=== PATIENT | male | born 1975 | race Caucasian/White ===

== ENCOUNTER 2016-11-10 12:27 | Day surgery (SDC) | payer OTHER ==
[~2016-11-10 12:27] MED LIST: Ketorolac 30 MG/ML SDV ONE; Lactated Ringers 1,000 ML IV SCH; Lidocaine 1%/Sod Bicarbonate in NS 8.4% 1 ML Syringe IV PRN; Sodium Chloride 0.9% 10 ML Syringe FLUSH PRN
[2016-11-10] MEDS ORDERED: Bupivacaine 0.25% 30 ML SDV ONE (12:32)
[2016-11-10] MEDS ORDERED: Lidocaine 1% 30 ML SDV ONE (12:35)
--- NOTE | 2016-11-10 13:05 | PCM.PREANE ---
Preanesthetic Assessment - Anesthesia/Transfusion/Family Hx Anesthesia History: Prior Anesthesia Without Reaction Type of Anesthesia Reaction: Other (see below) Family History of Anesthesia Reaction: No Transfusion History: No Prior Transfusion(s) - Review of Systems General: No Symptoms Pulmonary: No Symptoms Cardiovascular: No Symptoms Gastrointestinal: No symptoms, Other (occasional reflux) Neurological: No Symptoms Other: Reports: None - Physical Assessment NPO Status Date: 11/09/16 NPO Status Time: 21:00 ASA Class: 1 Mental Status: Alert & Oriented x3 Airway Class: Mallampati = 2 Dentition: Reports: Normal Dentition Thyro-Mental Finger Breadths: 3 Mouth Opening Finger Breadths: 3 ROM/Head Extension: Full Lungs: Clear to auscultation, Normal respiratory effort Cardiovascular: Regular Rate, Regular Rhythm - Lab Values: Laboratory Last Values WBC 9.95 K/mm3 (4.23-9.07) H 11/08/16 13:25 RBC 5.50 M/mm3 (4.63-6.08) 11/08/16 13:25 Hgb 16.8 gm/L (13.7-17.5) 11/08/16 13:25 Hct 48.1 % (40.1-51.0) 11/08/16 13:25 MCV 87.5 fl (79.0-92.2) 11/08/16 13:25 MCH 30.5 pg (25.7-32.2) 11/08/16 13:25 MCHC 34.9 g/dl (32.2-35.5) 11/08/16 13:25 RDW Std Deviation 41.3 fL (35.1-43.9) 11/08/16 13:25 Plt Count 330 K/mm3 (163-337) 11/08/16 13:25 MPV 8.7 fl (9.4-12.3) L 11/08/16 13:25 Neut % (Auto) 42.0 % (34.0-67.9) 11/08/16 13:25 Lymph % (Auto) 41.6 % (21.8-53.1) 11/08/16 13:25 Chase % (Auto) 8.6 % (5.3-12.2) 11/08/16 13:25 Eos % (Auto) 7.5 (0.8-7.0) H 11/08/16 13:25 Baso % (Auto) 0.3 % (0.1-1.2) 11/08/16 13:25 Neut # (Auto) 4.17 K/mm3 (1.78-5.38) 11/08/16 13:25 Lymph # (Auto) 4.14 K/mm3 (1.32-3.57) H 11/08/16 13:25 Chase # (Auto) 0.86 K/mm3 (0.30-0.82) H 11/08/16 13:25 Eos # (Auto) 0.75 K/mm3 (0.04-0.54) H 11/08/16 13:25 Baso # (Auto) 0.03 K/mm3 (0.01-0.08) 11/08/16 13:25 Sodium 139 mEq/L (136-145) 11/08/16 13:25 Potassium 4.1 mEq/L (3.5-5.1) 11/08/16 13:25 Chloride 103 mEq/L (98-107) 11/08/16 13:25 Carbon Dioxide 28 mEq/L (21-32) 11/08/16 13:25 Anion Gap 12.1 (5-15) 11/08/16 13:25 BUN 14 mg/dL (7-18) 11/08/16 13:25 Creatinine 1.0 mg/dL (0.7-1.3) 11/08/16 13:25 Est Cr Clr Drug Dosing TNP 11/08/16 13:25 Estimated GFR (MDRD) > 60 mL/min (>60) 11/08/16 13:25 BUN/Creatinine Ratio 14.0 (14-18) 11/08/16 13:25 Glucose 87 mg/dL (74-106) 11/08/16 13:25 Calcium 9.1 mg/dL (8.5-10.1) 11/08/16 13:25 MRSA (PCR) Negative 11/08/16 13:25 - Allergies Allergies/Adverse Reactions: Allergies Allergy/AdvReac Type Severity Reaction Status Date / Time No Known Allergies Allergy Verified 11/09/16 15:20 - Blood Blood Available: No Product(s) Available: None - Anesthesia Plan Pre-Op Medication Ordered: None - Acknowledgements Anesthesia Type Planned: MAC Pt an Appropriate Candidate for the Planned Anesthesia: Yes Alternatives and Risks of Anesthesia Discussed w Pt/Guardian: Yes Pt/Guardian Understands and Agrees with Anesthesia Plan: Yes PreAnesthesia Questionnaire Cardiovascular History: Reports: None Respiratory History: Reports: None Gastrointestinal History: Reports: None NEW [employer] MECH[employer]IC History: Reports: None Musculoskeletal History: Neurological History: Reports: None Psychiatric History: Reports: None Endocrine/Metabolic History: Reports: None Hematologic History: Reports: None Immunologic History: Reports: None Oncologic (Cancer) History: Reports: None Dermatologic History: Reports: None - Past Surgical History Head Surgeries/Procedures: Reports: None HEENT Surgical History: Reports: Oral surgery Male Surgical History: Reports: Vasectomy Musculoskeletal Surgical History: Reports: Other (see below) Other Musculoskeletal Surgeries/Procedures:: back pain - SUBSTANCE USE Smoking Status *Q: Never Smoker Recreational Drug Use History: No - HOME MEDS Home Medications: Home Meds Hydrocodone/Acetaminophen [[place] 5-325 Tablet] 1 - 2 each PO Q6H PRN #20 tablet 11/10/16 [Rx] - CURRENT (IN HOUSE) MEDS Current Meds: Current Medications Lactated Ringer's (Ringers, Lactated) 1,000 mls @ 125 mls/hr IV ASDIRECTED VIOLET Stop: 11/10/16 23:00 Lidocaine/Sodium Bicarbonate (Buffered Lidocaine 1% In Ns 8.4%) 0.25 ml IV ONETIME PRN PRN Reason: Prior to IV Start Stop: 11/10/16 18:00 Sodium Chloride (Saline Flush) 10 ml FLUSH ASDIRECTED PRN PRN Reason: Keep Vein Open Stop: 11/10/16 18:00 Discontinued Medications Bupivacaine HCl (Marcaine 0.25%) Confirm Administered Dose 30 ml .ROUTE .STK- MED ONE Stop: 11/10/16 12:33 Ketorolac Tromethamine (Toradol) Confirm Administered Dose 30 mg .ROUTE .STK- MED ONE Stop: 11/10/16 09:43 Lidocaine HCl (Xylocaine-Mpf 1%) Confirm Administered Dose 30 ml .ROUTE .STK- MED ONE Stop: 11/10/16 12:36
[2016-11-10] MEDS ORDERED: fentaNYL 100 MCG/2 ML SDV ONE (13:58)
[2016-11-10] MEDS ORDERED: Midazolam 1 MG/ML 2 ML SDV ONE (13:58)
[2016-11-10] MEDS ORDERED: Propofol 200 MG/20 ML SDV ONE (14:18)
[2016-11-10] MEDS ORDERED: Lidocaine 1% 4 ML ONE (14:18)
[2016-11-10 14:37] VITALS: BP 130/78
--- NOTE | 2016-11-16 23:14 | PCM.OPNOTE ---
- General Post-Op/Procedure Note Date of Surgery/Procedure: 11/10/16 Operative Procedure(s): left carpal tunnel release Pre Op Diagnosis: left median nerve compression neuropathy Post-Op Diagnosis: Same Anesthesia Technique: Local, MAC Primary Surgeon: Joe Gambino Anesthesia Provider: Maurice Rodas Sessions Clerk: Maren Manrique EBL in mLs: 5 Complications: None Condition: Good
--- NOTE | 2016-11-16 23:52 | OR ---
DATE OF OPERATION: 11/10/2016 SURGEON: Joe Gambino MD OPERATIVE PROCEDURE: Left carpal tunnel release. PREOPERATIVE DIAGNOSIS: Left median nerve compression neuropathy. POSTOPERATIVE DIAGNOSIS: Left median nerve compression neuropathy. ANESTHESIA: Technique, local MAC. ANESTHESIA PROVIDER: Maurice Rodas CRNA. ASSOCIATE STORE DIRECTOR: Maren Manrique PA-C. ESTIMATED BLOOD LOSS: Less than 5 mL. COMPLICATIONS: None. CONDITION: Stable. DESCRIPTION OF PROCEDURE: The patient was identified in the preop holding area, proper site was marked and identified by the surgeon. The patient was taken back to operating theater where after adequate anesthesia, the patient's left upper extremity had a nonsterile tourniquet applied and was then sterilely prepped and draped in the usual sterile fashion. OR time-out was performed. The patient did not receive antibiotics, it is not indicated for soft tissue hand procedure at this time. The left upper extremity was exsanguinated with the use of an Esmarch. An Esmarch was used as a tourniquet on the forearm. 0.25% Marcaine 1% lidocaine without epinephrine then was used to anesthetize the palmar cutaneous branch of the median nerve as long as the incisional site using Larios cardinal line in the ulnar border of the fourth digit. At this time, this was tested and there was found to be adequate anesthetization, so an incision was made. Blunt dissection was taken down to the palmar cutaneous fascia. Palmar cutaneous fascia was then incised with a [place] blade. Transverse carpal ligament was identified. A small rent was made in the transverse carpal ligament with a [place] blade. Trilla elevator was then placed distally underneath the transverse carpal ligament and this was then released with the use of a [place] blade. It was then released all the way down just short of the palmar arch making sure to release all tight tissue at this time, there was found to be adequate release distally. Attention was turned proximally. A tenotomy scissors was used with keeping the tips of ulnar to resect both the forearm fascia and the transverse carpal ligament. There was found to be adequate release both proximally and distally. At this time, adequate saline was irrigated through the wound and 4-0 nylon simple suture was used for closure of the skin. The patient tolerated the procedure well and was sent to PACU in stable condition. [facility] /[id number]
== END 2016-11-10 15:05 | disposition home or self-care (01) ==
LOC: JD.SDS 12:27
PROVIDERS: ATTEND Orthopaedic Surgery
DX: G56.12 Other lesions of median nerve, left upper limb (principal); Z98.890 Other specified postprocedural states
CPT/HCPCS: 36415; 64721; 80048; 85025; 87641; J2250; J3010; J7120; 01810; J1885; J2704; J3490

== ENCOUNTER 2016-11-24 12:12 | Day surgery (SDC) | payer OTHER ==
[~2016-11-24 12:12] MED LIST changes: -Ketorolac 30 MG/ML SDV ONE; +Propofol 200 MG/20 ML SDV ONE
[2016-11-24] MEDS ORDERED: Midazolam 1 MG/ML 2 ML SDV ONE (12:13)
[2016-11-24] MEDS ORDERED: fentaNYL 100 MCG/2 ML SDV ONE (12:13)
[2016-11-24] MEDS ORDERED: ceFAZolin 1 GM Vial ONE ×2 (12:14)
[2016-11-24] MEDS ORDERED: Bupivacaine 0.25% 30 ML SDV ONE (12:28)
[2016-11-24] MEDS ORDERED: Ondansetron 4 MG/2 ML SDV IVPUSH PRN (12:29)
[2016-11-24] MEDS ORDERED: fentaNYL 100 MCG/2 ML SDV IVPUSH PRN (12:29)
--- NOTE | 2016-11-24 12:29 | PCM.PREANE ---
Preanesthetic Assessment - Anesthesia/Transfusion/Family Hx Anesthesia History: Prior Anesthesia Without Reaction Type of Anesthesia Reaction: Unknown Family History of Anesthesia Reaction: No Transfusion History: No Prior Transfusion(s) - Review of Systems General: No Symptoms Pulmonary: No Symptoms Cardiovascular: No Symptoms Gastrointestinal: No symptoms Neurological: No Symptoms Other: Reports: None - Physical Assessment NPO Status Date: 11/23/16 NPO Status Time: 20:00 Pulse: 62 O2 Sat by Pulse Oximetry: 98 Respiratory Rate: 16 Blood Pressure: 125/78 Temperature: 36.6 C Height: 1.78 m Weight: 109.769 kg ASA Class: 1 Mental Status: Alert & Oriented x3 Airway Class: Mallampati = 2 Dentition: Reports: Normal Dentition Thyro-Mental Finger Breadths: 3 Mouth Opening Finger Breadths: 3 ROM/Head Extension: Full Lungs: Clear to auscultation, Normal respiratory effort Cardiovascular: Regular Rate, Regular Rhythm - Allergies Allergies/Adverse Reactions: Allergies Allergy/AdvReac Type Severity Reaction Status Date / Time No Known Allergies Allergy Verified 11/23/16 14:27 - Blood Blood Available: No Product(s) Available: None - Anesthesia Plan Pre-Op Medication Ordered: None - Acknowledgements Anesthesia Type Planned: MAC Pt an Appropriate Candidate for the Planned Anesthesia: Yes Alternatives and Risks of Anesthesia Discussed w Pt/Guardian: Yes Pt/Guardian Understands and Agrees with Anesthesia Plan: Yes PreAnesthesia Questionnaire Cardiovascular History: Reports: None Respiratory History: Reports: None Gastrointestinal History: Reports: None TRAP PULLER History: Reports: None Musculoskeletal History: Neurological History: Reports: None Psychiatric History: Reports: None Endocrine/Metabolic History: Reports: None Hematologic History: Reports: None Immunologic History: Reports: None Oncologic (Cancer) History: Reports: None Dermatologic History: Reports: None - Past Surgical History Head Surgeries/Procedures: Reports: None HEENT Surgical History: Reports: Oral surgery Male Surgical History: Reports: Vasectomy Musculoskeletal Surgical History: Reports: Other (see below) Other Musculoskeletal Surgeries/Procedures:: back surgery, L carpal tunnel release - SUBSTANCE USE Smoking Status *Q: Never Smoker Recreational Drug Use History: No - HOME MEDS Home Medications: Home Meds . [No Known Home Meds] 11/23/16 [History] - CURRENT (IN HOUSE) MEDS Current Meds: Current Medications Lactated Ringer's (Ringers, Lactated) 1,000 mls @ 125 mls/hr IV ASDIRECTED VIOLET Stop: 11/24/16 23:00 Lidocaine/Sodium Bicarbonate (Buffered Lidocaine 1% In Ns 8.4%) 0.25 ml IV ONETIME PRN PRN Reason: Prior to IV Start Stop: 11/24/16 18:00 Sodium Chloride (Saline Flush) 10 ml FLUSH ASDIRECTED PRN PRN Reason: Keep Vein Open Stop: 11/24/16 18:00 Discontinued Medications Cefazolin Sodium (Ancef) Confirm Administered Dose 1 gm .ROUTE .STK-MED ONE Stop: 11/24/16 12:15 Cefazolin Sodium (Ancef) Confirm Administered Dose 1 gm .ROUTE .STK-MED ONE Stop: 11/24/16 12:15 Fentanyl (Sublimaze) Confirm Administered Dose 100 mcg .ROUTE .STK-MED ONE Stop: 11/24/16 12:14 Midazolam HCl (Versed 1 Mg/Ml) Confirm Administered Dose 2 mg .ROUTE .STK-MED ONE Stop: 11/24/16 12:14 Propofol (Diprivan 20 Ml) Confirm Administered Dose 200 mg .ROUTE .STK-MED ONE Stop: 11/24/16 12:13
[2016-11-24] MEDS ORDERED: Lidocaine 1% 30 ML SDV ONE (12:41)
[2016-11-24] MEDS ORDERED: Propofol 200 MG/20 ML SDV ONE (13:06)
[2016-11-24] MEDS ORDERED: Lactated Ringers 1,000 ML ONE (13:27)
--- NOTE | 2016-11-24 13:27 | PCM48HPAN ---
Post Anesthesia Note - EVALUATION WITHIN 48HRS OF ANESTHETIC Vital Signs in Normal Range: Yes Patient Participated in Evaluation: Yes Respiratory Function Stable: Yes Airway Patent: Yes Cardiovascular Function Stable: Yes Hydration Status Stable: Yes Pain Control Satisfactory: Yes Nausea and Vomiting Control Satisfactory: Yes Mental Status Recovered: Yes
[2016-11-24 13:57] VITALS: BP 125/83
--- NOTE | 2016-11-24 17:56 | PCM.OPNOTE ---
- General Post-Op/Procedure Note Date of Surgery/Procedure: 11/24/16 Operative Procedure(s): right carpal tunnel release Pre Op Diagnosis: right median nerve compression neuropathy Post-Op Diagnosis: Same Anesthesia Technique: Local, MAC Primary Surgeon: Joe Gambino Anesthesia Provider: Lilli Stiles Medic Technician: Maren Manrique EBL in mLs: 5 Complications: None Condition: Good Free Text/Narrative:: Intake & Output 11/24/16 11/24/16 11/24/16 06:59 14:59 22:59 Intake Total 425 Balance 425
--- NOTE | 2016-11-24 18:56 | OR ---
DATE OF OPERATION: 11/24/2016 SURGEON: Jeo Gambino MD OPERATION PERFORMED: Right carpal tunnel release. PREOPERATIVE DIAGNOSIS: Right median nerve compression neuropathy. POSTOPERATIVE DIAGNOSIS: Right median nerve compression neuropathy. ANESTHESIA: Local MAC. ANESTHESIA PROVIDER: Lilli Stiles CRNA. GOVERNMENT AFFAIRS FELLOW: Maren Manrique PA-C. ESTIMATED BLOOD LOSS: Less than 5 mL. COMPLICATIONS: None. CONDITION: Stable. DESCRIPTION OF PROCEDURE: The patient was identified in the preop holding area. Proper site was marked and identified by the surgeon. The patient was taken back to the operating theater. After adequate anesthesia, the patient's right upper extremity was sterilely prepped draped in the usual sterile fashion. OR time-out was performed. The patient did not receive antibiotics, it was not indicated for soft tissue hand procedure at this time. Esmarch was used as a tourniquet on the forearm and this was done. Next, 0.25% Marcaine and 1% lidocaine without epinephrine were used to anesthetize roughly 9 cm proximal to the wrist crease over the palmar cutaneous branch median nerve and at the incisional site using Larios cardinal line and ulnar border of the fourth digit. At this time, this was tested and incision was made with a #15 blade. Blunt dissection was taken down the palmar cutaneous fascia. Palmar cutaneous fascia was then incised with a [place] blade. The [place] blade was then used for a small rent in the transverse carpal ligament. A [place] elevator was placed distally and was released all the way down distal to the palmar arch. There was found to be adequate release distally. At this time, attention was turned proximally. A tenotomy scissors was used for release of the forearm fascia and transverse carpal ligament proximally making sure to keep the tips of ulnar to protect the palmar cutaneous branch of the median nerve. There was found to be release both proximally and distally. Adequate saline was then irrigated through the wound. 4-0 nylon suture was used for the closure of the skin. A sterile soft dressing was applied. The patient tolerated the procedure well and was sent to PACU in stable condition. [facility] /[id number]
== END 2016-11-24 13:55 | disposition home or self-care (01) ==
LOC: JD.SDS 12:12
PROVIDERS: ATTEND Orthopaedic Surgery
DX: G56.11 Other lesions of median nerve, right upper limb (principal); Z98.890 Other specified postprocedural states; Z98.52 Vasectomy status
CPT/HCPCS: 64721; J2250; J3010; J7120; 01810; J0690; J2704; J3490

== ENCOUNTER → 2020-06-08 | Day surgery (SDC) | payer OTHER ==
[~2020-06-08] MED LIST changes: +Acetaminophen/HYDROcodone 325-5 MG Tab PO SCH; +EPINEPHrine 1 MG/ML 30 ML MDV IRR SCH; +HYDROmorphone 0.5 MG/0.5 ML Syringe IVPUSH ONE; +Ketorolac 30 MG/ML SDV ONE; +Lidocaine 1% 4 ML ONE; +Lidocaine 1%/Sod Bicarbonate in NS 8.4% 1 ML Syringe IDERM PRN; -Lidocaine 1%/Sod Bicarbonate in NS 8.4% 1 ML Syringe IV PRN; +Midazolam 1 MG/ML 2 ML SDV ONE; +Ondansetron 4 MG/2 ML SDV IVPUSH PRN; +Ondansetron 4 MG/2 ML SDV ONE; +ceFAZolin 1 GM Vial ONE; +fentaNYL 100 MCG/2 ML SDV IVPUSH PRN; +fentaNYL 100 MCG/2 ML SDV ONE
--- NOTE | 2020-06-08 08:35 | PCM.PREANE ---
Preanesthetic Assessment - Anesthesia/Transfusion/Family Hx Anesthesia History: Prior Anesthesia Without Reaction Family History of Anesthesia Reaction: No Transfusion History: No Prior Transfusion(s) - Review of Systems General: No Symptoms Pulmonary: No Symptoms Cardiovascular: No Symptoms Gastrointestinal: No Symptoms Neurological: No Symptoms Other: Reports: None - Physical Assessment NPO Status Date: 06/07/20 NPO Status Time: 20:00 ASA Class: 1 Mental Status: Alert & Oriented x3 Airway Class: Mallampati = 1 Dentition: Reports: Normal Dentition Thyro-Mental Finger Breadths: 3 Mouth Opening Finger Breadths: 3 ROM/Head Extension: Full Lungs: Clear to Auscultation, Normal Respiratory Effort Cardiovascular: Regular Rate, Regular Rhythm - Lab Values: Laboratory Last Values MRSA (PCR) Negative 05/20/20 15:24 - Allergies Allergies/Adverse Reactions: Allergies Allergy/AdvReac Type Severity Reaction Status Date / Time No Known Allergies Allergy Verified 06/05/20 11:03 - Acknowledgements Anesthesia Type Planned: General Anesthesia Pt an Appropriate Candidate for the Planned Anesthesia: Yes Alternatives and Risks of Anesthesia Discussed w Pt/Guardian: Yes Pt/Guardian Understands and Agrees with Anesthesia Plan: Yes PreAnesthesia Questionnaire HEENT History: Reports: None Cardiovascular History: Reports: None Respiratory History: Reports: None Gastrointestinal History: Reports: GERD Genitourinary History: Reports: None GUT CLEANER History: Reports: None Musculoskeletal History: Reports: None Neurological History: Reports: None Psychiatric History: Reports: None Endocrine/Metabolic History: Reports: None Hematologic History: Reports: None Immunologic History: Reports: None Oncologic (Cancer) History: Reports: None Dermatologic History: Reports: None - Past Surgical History Head Surgeries/Procedures: Reports: None HEENT Surgical History: Reports: Oral Surgery Cardiovascular Surgical History: Reports: None Respiratory Surgical History: Reports: None GI Surgical History: Reports: None Female Surgical History: Reports: None Male Surgical History: Reports: None, Vasectomy Endocrine Surgical History: Reports: None Neurological Surgical History: Reports: Lumbar Spine Musculoskeletal Surgical History: Reports: Other (See Below) Other Musculoskeletal Surgeries/Procedures:: back surgery, bilateral carpal tunnel release Oncologic Surgical History: Reports: None Dermatological Surgical History: Reports: None - SUBSTANCE USE Tobacco Use Status *Q: Never Tobacco User Recreational Drug Use History: No - HOME MEDS Home Medications: Home Meds Acetaminophen/HYDROcodone [[place] 325-5 MG] 1 - 2 tab PO Q6H PRN #10 tablet 06/08/20 [Rx] Aspirin [Aspirin EC] 325 mg PO BID #84 tab 06/08/20 [Rx] - CURRENT (IN HOUSE) MEDS Current Meds: Current Medications Epinephrine HCl (Adrenalin) 3 mg IRR ONETIME VIOLET Stop: 06/08/20 13:00 Lactated Ringer's (Ringers, Lactated) 1,000 mls @ 125 mls/hr IV ASDIRECTED VIOLET Stop: 06/08/20 23:00 Lidocaine/Sodium Bicarbonate (Buffered Lidocaine 1% In Ns 8.4%) 0.25 ml IDERM ONETIME PRN PRN Reason: Prior to IV Start Stop: 06/08/20 18:00 Sodium Chloride (Saline Flush) 10 ml FLUSH ASDIRECTED PRN PRN Reason: Keep Vein Open Stop: 06/08/20 18:00 Discontinued Medications Cefazolin Sodium (Ancef) Confirm Administered Dose 2 gm .ROUTE .STK-MED ONE Stop: 06/08/20 08:10 Fentanyl (Sublimaze) Confirm Administered Dose 100 mcg .ROUTE .STK-MED ONE Stop: 06/08/20 08:03 Lidocaine HCl (Xylocaine-Mpf 1%) Confirm Administered Dose 4 mls @ as directed .ROUTE .STK-MED ONE Stop: 06/08/20 08:01 Midazolam HCl (Versed 1 Mg/Ml) Confirm Administered Dose 2 mg .ROUTE .STK-MED ONE Stop: 06/08/20 08:02 Propofol (Diprivan 20 Ml) Confirm Administered Dose 200 mg .ROUTE .STK-MED ONE Stop: 06/08/20 08:00
[2020-06-08] MEDS: Bupivacaine 0.25% 10 ML SDV ONE ×2 (09:07→11:13)
--- NOTE | 2020-06-08 11:34 | PCM.POSTAN ---
POST ANESTHESIA ASSESSMENT - MENTAL STATUS Mental Status: Alert, Oriented - VITAL SIGNS Vital Signs: Last Vital Signs Temp 36.4 C 06/08/20 08:25 Pulse 68 06/08/20 08:25 Resp 16 06/08/20 08:25 BP 133/90 06/08/20 08:25 Pulse Ox 96 06/08/20 08:25 - RESPIRATORY Respiratory Status: Respiratory Rate WNL, Airway Patent, O2 Saturation Stable - CARDIOVASCULAR CV Status: Pulse Rate WNL, Blood Pressure Stable - GASTROINTESTINAL GI Status: No Symptoms - PAIN Pain Score: 0 - POST OP HYDRATION Hydration Status: Adequate & Stable
--- NOTE | 2020-06-08 12:44 | PCM48HPAN ---
Post Anesthesia Note - EVALUATION WITHIN 48HRS OF ANESTHETIC Vital Signs in Normal Range: Yes Patient Participated in Evaluation: Yes Respiratory Function Stable: Yes Airway Patent: Yes Cardiovascular Function Stable: Yes Hydration Status Stable: Yes Pain Control Satisfactory: Yes Nausea and Vomiting Control Satisfactory: Yes Mental Status Recovered: Yes Vital Signs: Last Vital Signs Temp 36.5 C 06/08/20 12:30 Pulse 64 06/08/20 12:30 Resp 11 L 06/08/20 12:30 BP 103/67 06/08/20 12:30 Pulse Ox 91 L 06/08/20 12:30
[2020-06-08 13:36] VITALS: BP 105/63; PULSE 66
--- NOTE | 2020-06-21 16:22 | PCM.OPNOTE ---
- General Post-Op/Procedure Note Date of Surgery/Procedure: 06/08/20 Operative Procedure(s): right knee video arthroscopy with partial medial meniscectomy and partial synovectomy Pre Op Diagnosis: right knee medial meniscus tear Post-Op Diagnosis: same with fat pad impingement Anesthesia Technique: General LMA, Local Primary Surgeon: Joe Gambino Anesthesia Provider: Herminia Ramirez Mannequin Mounter: Maren Manrique EBAlejandra in mLs: 5 Complications: None Condition: Good
--- NOTE | 2020-06-21 17:26 | OR ---
DATE OF OPERATION: 06/08/2020 SURGEON: Joe Gambino MD OPERATION PERFORMED: Right knee video arthroscopy with partial medial meniscectomy and partial synovectomy. PREOPERATIVE DIAGNOSIS: Right knee medial meniscus tear. POSTOPERATIVE DIAGNOSIS: Right knee medial meniscus tear with fat pad impingement. ANESTHESIA: General LMA with local. ANESTHESIA PROVIDER: Herminia Ramirez CRNA. CRANE LADLE PERSON: Maren Manrique PA-C. ESTIMATED BLOOD LOSS: 5 mL. COMPLICATIONS: None. CONDITION: Stable. DESCRIPTION OF PROCEDURE: The patient was identified in the preoperative holding area where proper site was marked and identified by the surgeon. The patient was taken back to the operating theater, where after adequate anesthesia the patient's left lower extremity was placed in a well leg nguyen and a nonsterile tourniquet was applied and was placed in a C-clamp nguyen. Bed was then lowered. Right lower extremity was then sterilely prepped and draped in the usual sterile fashion. OR time-out was performed. The patient received 2 g of IV Ancef. Right lower extremity was exsanguinated. Tourniquet was insufflated to 250 mmHg. Standard anterolateral portal incision was made. Scope trocar was introduced. The patient was noted to have no significant chondromalacia of the patellofemoral joint. He was noted to have significant erythema as well as overgrowth of the fat pad with a small plica. Attention was turned to the medial compartment. With the use of a spinal needle, anteromedial small flap tear at the posterior third horn of the medial meniscus encompassing less than 10% of the posterior meniscus. Partial medial meniscectomy was performed back to a stable rim. The patient had no chondromalacia to speak of. ACL was intact in the notch. Lateral compartment showed no signs of chondromalacia or meniscal tear. Partial synovectomy was performed at the anterior fat pad. 0.25% Marcaine was injected along the incisional sites. 3-0 nylon was used for closure with sterile soft dressing. He was sent to PACU in stable condition. [facility] /[id number]
== END | disposition home or self-care (01) ==
LOC: JD.SDS 08:23
PROVIDERS: ATTEND Orthopaedic Surgery
DX: S83.241A Other tear of medial meniscus, current injury, right knee, initial encounter (principal); M94.261 Chondromalacia, right knee; M65.861 Other synovitis and tenosynovitis, right lower leg; M25.861 Other specified joint disorders, right knee; K21.9 Gastro-esophageal reflux disease without esophagitis; Z79.899 Other long term (current) drug therapy; Z98.890 Other specified postprocedural states; Z79.82 Long term (current) use of aspirin
CPT/HCPCS: 01400; 87641; A9270-GY; J0171; J0690; J1885; J2001; J2250; J2405; J2704; J3010; J3490; J7120

== ENCOUNTER 2021-06-20 01:41 | Emergency (ER) | payer OTHER ==
[2021-06-20 02:03] VITALS: BP 120/84; PULSE 70
[2021-06-20] MEDS ORDERED: Sodium Chloride 0.9% 10 ML Syringe FLUSH PRN (02:15)
[2021-06-20] MEDS ORDERED: Sodium Chloride 0.9% 1,000 ML IV SCH (02:15)
[2021-06-20] MEDS ORDERED: Ondansetron 4 MG/2 ML SDV IVPUSH ONE (02:15)
--- NOTE | 2021-06-20 02:37 | EDM.PDOC ---
ED HPI GENERAL MEDICAL PROBLEM - General Chief Complaint: Abdominal Pain Stated Complaint: ABDOMINAL PAIN Time Seen by Provider: 06/20/21 02:10 Source of Information: Reports: Patient History Limitations: Reports: No Limitations - History of Present Illness INITIAL COMMENTS - FREE TEXT/NARRATIVE: Patient is a 46-year-old male presenting to the emergency room with a chief complaint of abdominal pain. Patient reports having an episode of abdominal pain tonight. He states he has had these several times in the past. This was typical for this course of symptoms. He states he had abdominal pain with the urge to defecate. He rushed to the bathroom to have a bowel movement. He started feeling chills, rumbling in his stomach and severe pain. He reports having some diarrhea. Otherwise, the pain subsided without intervention. He has had several episodes in the past few years agrees at this and subsequently passed out. Otherwise, he denies any fevers, chills, loss of appetite, nausea, vomiting. He states he normally would have come back to sleep since he feels better now. However, he has been told that he should go to the ER if this happens again. Middle Abdominal Pain Score (Numeric/FACES): 1 - Related Data Allergies Allergy/AdvReac Type Severity Reaction Status Date / Time No Known Allergies Allergy Verified 06/20/21 02:03 Home Meds: Home Meds . 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 Musculoskeletal History: Reports: None Neurological History: Reports: None Psychiatric History: Reports: None Endocrine/Metabolic History: Reports: None Hematologic History: Reports: None Immunologic History: Reports: None Oncologic (Cancer) History: Reports: None Dermatologic History: Reports: None - Infectious Disease History Infectious Disease History: Reports: Chicken Pox, Shingles - Past Surgical History Head Surgeries/Procedures: Reports: None HEENT Surgical History: Reports: Oral Surgery Cardiovascular Surgical History: Reports: None Respiratory Surgical History: Reports: None GI Surgical History: Reports: None Male Surgical History: Reports: None, Vasectomy Endocrine Surgical History: Reports: None Neurological Surgical History: Reports: Lumbar Spine Musculoskeletal Surgical History: Reports: Other (See Below) Other Musculoskeletal Surgeries/Procedures:: back surgery, bilateral carpal tunnel release, knee scope Oncologic Surgical History: Reports: None Dermatological Surgical History: Reports: None Social & Family History - Family History Family Medical History: No Pertinent Family History - Tobacco Use Tobacco Use Status *Q: Never Tobacco User Second Hand Smoke Exposure: No - Caffeine Use Caffeine Use: Reports: Coffee - Alcohol Use Date of Last Drink: 06/19/21 - Recreational Drug Use Recreational Drug Use: No ED ROS GENERAL - Review of Systems Review Of Systems: See Below Free Text/Narrative/Comment: In addition to that documented in the HPI above, the additional ROS was obtained: Constitutional: Denies fevers or chills Eyes: Denies vision changes ENMT: Denies sore throat CV: Denies chest pain Resp: Denies SOB GI: Per HPI : Denies painful urination MSK: Denies recent trauma Skin: Denies new rashes Neuro: Denies new numbness or tingling or weakness Endocrine: Denies unexpected weight loss Heme: Denies bleeding disorders ED EXAM, GI/ABD - Physical Exam Exam: See Below Text/Narrative:: I have reviewed the triage vital signs Const: Well nourished, well developed, appears stated age Eyes: Pupils Equal and reactive to light bilaterally, no conjunctival injection HENT: No signs of trauma or swelling, Neck supple without meningismus CV: Regular Rate Rhythm, Warm, well-perfused extremities RESP: Unlabored respiratory effort GI: soft, non-tender, non-distended, no masses MSK: No gross deformities appreciated Skin: Warm, dry. No rashes Neuro: Alert, residential advisor II-XII grossly intact. Sensation and motor function of extremities grossly intact. Psych: Appropriate mood and affect. #1 Interpretation EKG Date: 06/20/21 Time: 02:35 Rhythm: NSR Rate (Beats/Min): 67 [place]: Normal P-Wave: Present QRS: Normal ST-T: Normal QT: Normal Comparison: NA - No Prior EKG EKG Interpretation Comments: Borderline prolonged EKG benign early repole. Borderline EKG. Course - Vital Signs Last Recorded V/S: Last Vital Signs Temp 36.3 C 06/20/21 01:57 Pulse 70 06/20/21 01:57 Resp 16 06/20/21 01:57 BP 120/84 06/20/21 01:57 Pulse Ox 94 L 06/20/21 01:57 Orthostatic Blood Pressure [ 113/75 Standing] Orthostatic Blood Pressure [ 110/79 Sitting] Orthostatic Blood Pressure [ 116/73 Supine] - Orders/Labs/Meds Orders: Active Orders 24 hr Category Date Time Status Communication Order [RC] ASDIRECTED Care 06/20/21 02:15 Active Communication Order [RC] ASDIRECTED Care 06/20/21 02:15 Active Communication Order [RC] ASDIRECTED Care 06/20/21 02:15 Active Communication Order [RC] ASDIRECTED Care 06/20/21 02:15 Active Orthostatic Vital Signs [RC] ASDIRECTED Care 06/20/21 02:15 Active Peripheral IV Care [RC] . DIRECTED Care 06/20/21 02:15 Active Sodium Chloride 0.9% [Saline Flush] Med 06/20/21 02:15 Active 10 ml FLUSH ASDIRECTED PRN Peripheral IV Insertion Adult [OM.PC] Stat Oth 06/20/21 02:15 Ordered Medication Orders Sodium Chloride (Sodium Chloride 0.9% 10 Ml Syringe) 10 ml FLUSH ASDIRECTED PRN PRN Reason: Keep Vein Open Last Admin: 06/20/21 02:26 Dose: 10 ml Documented by: HEIDY Labs: Laboratory Tests 06/20/21 06/20/21 Range/Units 02:20 02:20 WBC 8.02 (4.23-9.07) K/mm3 RBC 5.32 (4.63-6.08) M/mm3 Hgb 16.1 (13.7-17.5) gm/dl Hct 47.0 (40.1-51.0) % MCV 88.3 (79.0-92.2) fl MCH 30.3 (25.7-32.2) pg MCHC 34.3 (32.2-35.5) g/dl RDW Std Deviation 40.4 (35.1-43.9) fL Plt Count 285 (163-337) K/mm3 MPV 8.4 L (9.4-12.3) fl Neut % (Auto) 36.5 (34.0-67.9) % Lymph % (Auto) 46.0 (21.8-53.1) % Haines % (Auto) 9.6 (5.3-12.2) % Eos % (Auto) 7.5 H (0.8-7.0) Baso % (Auto) 0.2 (0.1-1.2) % Neut # (Auto) 2.92 (1.78-5.38) K/mm3 Lymph # (Auto) 3.69 H (1.32-3.57) K/mm3 Haines # (Auto) 0.77 (0.30-0.82) K/mm3 Eos # (Auto) 0.60 H (0.04-0.54) K/mm3 Baso # (Auto) 0.02 (0.01-0.08) K/mm3 Sodium 143 (136-145) mEq/L Potassium 4.1 (3.5-5.1) mEq/L Chloride 104 (98-107) mEq/L Carbon Dioxide 28 (21-32) mEq/L Anion Gap 15.1 H (5-15) BUN 15 (7-18) mg/dL Creatinine 1.0 (0.7-1.3) mg/dL Est Cr Clr Drug Dosing 97.33 mL/min Estimated GFR (MDRD) > 60 (>60) mL/min BUN/Creatinine Ratio 15.0 (14-18) Glucose 103 H (70-99) mg/dL Calcium 9.1 (8.5-10.1) mg/dL Magnesium 2.2 (1.8-2.4) mg/dL Total Bilirubin 0.8 (0.2-1.0) mg/dL AST 17 (15-37) U/L ALT 33 (16-63) U/L Alkaline Phosphatase 68 (46-116) U/L C-Reactive Protein <0.2 (<1.0) mg/dL Total Protein 6.9 (6.4-8.2) g/dl Albumin 3.8 (3.4-5.0) g/dl Globulin 3.1 gm/dL Albumin/Globulin Ratio 1.2 (1-2) Lipase 132 (73-393) U/L Meds: Medications Generic Name Dose Route Start Last Admin Trade Name Freq PRN Reason Stop Dose Admin Sodium Chloride 10 ml 06/20/21 02:15 06/20/21 02:26 Sodium Chloride 0.9% 10 Ml Syringe FLUSH 10 ml ASDIRECTED PRN Administration Keep Vein Open Discontinued Medications Generic Name Dose Route Start Last Admin Trade Name Freq PRN Reason Stop Dose Admin Sodium Chloride 1,000 mls @ 999 mls/hr 06/20/21 02:15 06/20/21 02:26 Normal Saline IV 06/20/21 03:14 999 mls/hr Q1H VIOLET Administration Ondansetron HCl 4 mg 06/20/21 02:15 06/20/21 02:26 Ondansetron 4 Mg/2 Ml Sdv IVPUSH 06/20/21 02:16 4 mg ONETIME ONE Administration Departure - Departure Time of Disposition: 03:11 Disposition: Home, Self-Care 01 Clinical Impression: Abdominal pain - Discharge Information Instructions: Abdominal Pain, Adult Referrals: Enmanuel Rao MD [Primary Care Provider] - Forms: ED Department Discharge Sepsis Event Note (ED) - Evaluation Sepsis Screening Result: No Definite Risk - Focused Exam Vital Signs: Vital Signs Temp Pulse Resp BP Pulse Ox 06/20/21 01:57 36.3 C 70 16 120/84 94 L - My Orders Last 24 Hours: My Active Orders 06/20/21 02:15 Communication Order [RC] ASDIRECTED Communication Order [RC] ASDIRECTED Communication Order [RC] ASDIRECTED Communication Order [RC] ASDIRECTED Orthostatic Vital Signs [RC] ASDIRECTED Peripheral IV Care [RC] . DIRECTED Sodium Chloride 0.9% [Saline Flush] 10 ml FLUSH ASDIRECTED PRN Peripheral IV Insertion Adult [OM.PC] Stat - Assessment/Plan Last 24 Hours: My Active Orders 06/20/21 02:15 Communication Order [RC] ASDIRECTED Communication Order [RC] ASDIRECTED Communication Order [RC] ASDIRECTED Communication Order [RC] ASDIRECTED Orthostatic Vital Signs [RC] ASDIRECTED Peripheral IV Care [RC] . DIRECTED Sodium Chloride 0.9% [Saline Flush] 10 ml FLUSH ASDIRECTED PRN Peripheral IV Insertion Adult [OM.PC] Stat Assessment:: Patient is a 46-year-old male presenting with abdominal pain. Patient had normal vital signs and unremarkable ER course. Patient very comfortable during the emergency room evaluation. Abdominal exam is benign. Patient had no further episodes while in the emergency room. His laboratory studies reviewed did not demonstrate any significant abnormality. Differential diagnosis considered for this patient include bowel obstruction, diverticulitis, appendicitis, pancreatitis. Patient urged to follow-up with primary care physician for further work-up and evaluation. Return precautions discussed as usual.
== END 2021-06-20 03:22 | disposition home or self-care (01) ==
LOC: JD.ED 01:41
DX: R10.9 Unspecified abdominal pain (principal); K21.9 Gastro-esophageal reflux disease without esophagitis
CPT/HCPCS: 36415; 80053; 83690; 83735; 85025; 86140; 93005; 96374; 99284; J2405; J7030